=== PATIENT | female | born 1990 | race Caucasian/White ===

== ENCOUNTER → 2017-02-21 | Outpatient (CLI) | payer OTHER | LOC: HPND 07:58 | PROVIDERS: ATTEND Obstetrics & Gynecology | DX: O35.2XX0 Maternal care for (suspected) hereditary disease in fetus, not applicable or unspecified (principal); Z82.49 Family history of ischemic heart disease and other diseases of the circulatory system | CPT/HCPCS: 76811 ==

== ENCOUNTER → 2017-03-21 | Outpatient (CLI) | payer OTHER | LOC: HPND 07:30 | PROVIDERS: ATTEND Obstetrics & Gynecology | DX: O35.2XX0 Maternal care for (suspected) hereditary disease in fetus, not applicable or unspecified (principal); O99.412 Diseases of the circulatory system complicating pregnancy, second trimester | CPT/HCPCS: 76816; 76825; 76827; 93325 ==

== ENCOUNTER → 2017-05-01 | Outpatient (CLI) | payer OTHER | LOC: HPND 07:43 | PROVIDERS: ATTEND Obstetrics & Gynecology | DX: O99.89 Other specified diseases and conditions complicating pregnancy, childbirth and the puerperium (principal); O36.5930 Maternal care for other known or suspected poor fetal growth, third trimester, not applicable or unspecified; O99.413 Diseases of the circulatory system complicating pregnancy, third trimester | CPT/HCPCS: 76816; 76818; 76820; 76821 ==